=== PATIENT | male | born 1975 | race Caucasian/White ===

== ENCOUNTER 2018-07-03 04:30 | Emergency (ER) | payer OTHER ==
[~2018-07-03] VITALS: Ht 177.8 cm; Wt 136.1 kg
[~2018-07-03 04:30] MED LIST: Flomax0.4 MG PO; Percocet 5-3251 EACH PO; Zofran Odt4 MG SL
[2018-07-03] MEDS ORDERED: BENADRYL25 MG PO (04:43)
== END 2018-07-03 06:29 | disposition home or self-care (01) ==
LOC: ER 04:30
DX: M70.72 Other bursitis of hip, left hip (principal); Z88.0 Allergy status to penicillin
CPT/HCPCS: J1885

== ENCOUNTER 2020-02-05 02:23 | Emergency (ER) | payer OTHER ==
[~2020-02-05] VITALS: Ht 177.8 cm; Wt 127.0 kg
[~2020-02-05 02:23] MED LIST changes: +BENADRYL25 MG PO; +Naprosyn500 MG PO
[2020-02-05] MEDS ORDERED: Cleocin HCl300 MG PO (03:09)
[2020-02-05] MEDS ORDERED: Norco 5-325 Ta1 EACH PO (03:09)
== END 2020-02-05 03:19 | disposition home or self-care (01) ==
LOC: ER 02:23
DX: K04.7 Periapical abscess without sinus (principal); Z88.0 Allergy status to penicillin; Z87.442 Personal history of urinary calculi; Z79.899 Other long term (current) drug therapy
CPT/HCPCS: 41800; 99282-25